=== PATIENT | female | born 1945 | race Caucasian/White ===

== ENCOUNTER → 2020-07-27 02:15 | Outpatient (CLI) | payer MEDICARE, BC, SELFPAY ==
[2020-07-27 19:11] LABS: SARS-CoV-2 RNA PCR Negative
== END ==
PROVIDERS: PCP Internal Medicine; Visit Provider Otolaryngology
DX: Z01.812 Encounter for preprocedural laboratory examination (principal); Z20.822 Contact with and (suspected) exposure to COVID-19
CPT/HCPCS: C9803; U0003; U0005

== ENCOUNTER 2020-07-27 09:12 | Outpatient (CLI) | payer MEDICARE, BC, SELFPAY ==
--- NOTE | 2020-07-27 10:00 | ECG_ITS ---
Measurements Intervals Taylor Rate: 65 P: MT: 0 QRS: -38 QRSD: 102 T: 10 QT: 398 QTc: 415 Interpretive Statements SINUS RHYTHM WITH FIRST DEGREE AV BLOCK LEFT AXIS DEVIATION VOLTAGE CRITERIA FOR LVH POOR R WAVE PROGRESSION, ANTERIOR LEADS BORDERLINE T WAVE ABNORMALITY- ANTEROLAT/INF LEADS BASELINE ARTIFACT- I, II, III, AVR, AVL, AVF, V1-V6 ABNORMAL ECG Electronically Signed On 07-27-2020 14:25:57 CDT by Genaro Cannon D.O.
[2020-07-27 10:11] LABS: Anion Gap 6 mmol/L (8-16); Blood Urea Nitrogen 13 mg/dL (7-17); Calcium 8.7 mg/dL (8.4-10.2); Carbon Dioxide 28 mmol/L (22-30); Chloride 107 mmol/L (98-107); Estimated Glomerular Filt Rate > 60; Glucose 129 mg/dL (65-105); Potassium 3.7 mmol/L (3.4-5.0); Sodium 141 mmol/L (137-145)
== END 2020-07-27 09:13 | disposition home or self-care (01) ==
PROVIDERS: Anesthesiology; PCP Internal Medicine; Visit Provider Otolaryngology
DX: E11.9 Type 2 diabetes mellitus without complications (principal); I10 Essential (primary) hypertension; Z01.818 Encounter for other preprocedural examination; I44.0 Atrioventricular block, first degree
CPT/HCPCS: 36415; 80048; 93005; C9803; U0003; U0005

== ENCOUNTER 2020-07-30 02:32 | Day surgery (SDC) | payer MEDICARE, BC, SELFPAY ==
[2020-07-26 14:56] VITALS: BMI 26.3
[2020-07-30] VITALS (10 sets, daily range): BP systolic 111–138; BP diastolic 54–69; PULSE 54–73; RESP 16–18; TEMP 36.3–36.6; O2SAT 95–100; BMI 25.6
--- NOTE | 2020-07-30 10:10 | WPDHPUPDATE1 ---
History and Physical Update Update Date/Time: 07/30/20 10:10 History and Physical has been reviewed, including an updated exam of the patient. There are NO changes in the patient's condition. Risks, benefits, and alternatives have been discussed and questions answered. Patient agrees to proceed with procedure.
[2020-07-30] MEDS: LIDO 1%/EPINEPHRINE 1:100,000 50 ML VIAL 20 ML INFILTRATE (12:07)
[2020-07-30] MEDS: OXYMETAZOLINE HCL 0.05% NAS 15 ML BTL (*BKC) 1 SPRAY NASAL ×2 (12:09→12:11)
[2020-07-30] MEDS: LACTATED RINGERS 1,000 ML 30 ML IV CONT (12:09)
[2020-07-30 12:16] LABS: Glucose Point of Care 117 (65-105)
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
--- NOTE | 2020-07-30 12:34 | P.OP_ITS ---
Procedure Note - Detailed Date of procedure: 07/30/20 Pre-op diagnosis: closed nose fx Post-op diagnosis: same Procedure performed: Closed reduction of nasal fracture Description of procedure: On the date of the procedure, the patient was iden tified in the preoperative holding area. All questions were answered, consent was signed and verified and they were then brought to the OR and placed under general anesthesia via laryngeal mask. A timeout was performed verifying the correct patient identity and procedure to be performed which they were. The patient was prepped and draped for closed reduction of nasal bone fracture. 1% lidocaine with 1:100,000 epinephrine was then infiltrated into the septum, turbinates, nasal dorsum via intercartilaginous injection and then bilateral infratrochlear nerve block performed. Afrin soaked cottonoids were placed bilaterally and allowed to sit for 5 minutes. Then, using a boise elevator to elevate the nasal bones, they were then reduced using digital manipulation externally combined with intranasal manipulation from the elevator. Several attempts made until satisfactory reduction of nasal bones. The appearance of the nasal bones were satisfactory. The nasal septum remained deviated and was not addressed with this procedure. Afrin soaked cottonoids replaced for 5 minutes and hemostasis was obtained. Mastasol was applied to the skin, steri strips fashioned to cover the soft t issue envelope of the nose. A inocencia splint was then fashioned and placed over the nose. The cottonoids were removed. Care of the patient was returned to anesthesia who woke them up, extubated and transferred them to PACU for recovery in stable condition without complication. Anesthesia: GETA Surgeon: Kris Peraza MD Estimated blood loss (mL): 1 Drains: No Packing: No Pathology: none sent Complications: No immediate complications Condition: stable Disposition: same day Findings: Reduced nasal bone fracture
[2020-07-30] MEDS: fentaNYL CITRATE INJ (*CRX) 100 MCG/2 ML VIAL 25 MCG IV PUSH ×2 (13:20→13:23)
[2020-07-30 13:43] LABS: Glucose Point of Care 122 (65-105)
== END 2020-07-30 15:15 | disposition home or self-care (01) ==
PROVIDERS: PCP Internal Medicine; Visit Provider Otolaryngology
PROC: 0NSBXZZ Reposition Nasal Bone, External Approach (ICD-10-PCS; CPT 21315; principal; 2020-07-30 13:00)
DX: S02.2XXA Fracture of nasal bones, initial encounter for closed fracture (principal); W05.0XXA Fall from non-moving wheelchair, initial encounter; J34.3 Hypertrophy of nasal turbinates; E11.9 Type 2 diabetes mellitus without complications; J45.909 Unspecified asthma, uncomplicated; I11.9 Hypertensive heart disease without heart failure; M19.90 Unspecified osteoarthritis, unspecified site; Z86.73 Personal history of transient ischemic attack (TIA), and cerebral infarction without residual deficits
CPT/HCPCS: 21320; 82948; A9270; J0330; J1100; J2405; J2704; J3010; J7120